=== PATIENT | female | born 1970 | race Caucasian/White ===

== ENCOUNTER 2022-01-02 13:56 | Outpatient (REF) | payer MEDICARE, MEDICAID, SELFPAY ==
[2022-01-02 14:49] LABS: Estimated Average Glucose 97 mg/dL
[2022-01-02 15:25] LABS: Cholesterol 239 mg/dL; HDL Cholesterol 57 mg/dL; LDL Cholesterol Calculated 170 mg/dl; Triglycerides 61 mg/dL
[2022-01-02 15:49] LABS: Free T4 (Free Thyroxine) 1.01 ng/dL (0.71-1.85); Thyroid Stimulating Hormone 0.41 uIU/mL (0.32-4.0)
== END 2022-01-02 13:57 | disposition home or self-care (01) ==
LOC: HO.LAB 13:56
PROVIDERS: Visit Provider Registered Nurse
DX: F31.31 Bipolar disorder, current episode depressed, mild (principal); Z51.81 Encounter for therapeutic drug level monitoring; Z79.899 Other long term (current) drug therapy
CPT/HCPCS: 36415; 80061; 83036; 84439; 84443

== ENCOUNTER 2022-09-14 11:35 | Outpatient (REF) | payer MEDICARE, MEDICAID, SELFPAY ==
[2022-09-14 12:38] LABS: Estimated Average Glucose 97 mg/dL
[2022-09-14 12:46] LABS: Cholesterol 257 mg/dL; HDL Cholesterol 61 mg/dL; LDL Cholesterol Calculated 181 mg/dl; Triglycerides 78 mg/dL
[2022-09-14 13:06] LABS: TSH reflex Free T4 0.81 uIU/mL (0.32-4.0)
== END 2022-09-14 11:36 | disposition home or self-care (01) ==
LOC: HO.LAB 11:35
PROVIDERS: Visit Provider Registered Nurse
DX: Z51.81 Encounter for therapeutic drug level monitoring (principal)
CPT/HCPCS: 36415; 80061; 83036; 84443

== ENCOUNTER 2025-08-21 10:41 | Outpatient (REF) | payer MEDICARE, MEDICAID, SELFPAY ==
[2025-08-21 12:51] LABS: Folate 9.4 ng/mL (> or = 4.0); Vitamin B12 601 pg/mL (200-900)
== END 2025-08-21 10:42 | disposition home or self-care (01) ==
LOC: HO.LAB 10:41
PROVIDERS: Visit Provider Psychiatry & Neurology Neurology
DX: G31.84 Mild cognitive impairment of uncertain or unknown etiology (principal); R25.1 Tremor, unspecified; F41.9 Anxiety disorder, unspecified; F10.90 Alcohol use, unspecified, uncomplicated
CPT/HCPCS: 36415; 82607; 82746; 99212

== ENCOUNTER 2025-08-21 10:41 | Outpatient (AMB) | payer MEDICARE, MEDICAID, SELFPAY ==
--- NOTE | 2025-08-21 10:57 | MHC.OFFVIS ---
Intake Visit Reasons: 1 Year follow up Allergies aspirin Allergy (Unknown, Verified 08/20/25 08:32) Unknown Penicillins Allergy (Unknown, Verified 08/20/25 08:32) Unknown sulfur dioxide Allergy (Unknown, Verified 08/20/25 08:32) Unknown HPI Comments Details: 55 years old woman with anxiety, diagnosis of bipolar disorder, and benign tremor. She was okay except that she was finding herself forgetful. Sometime she was also nervous. Otherwise no new symptom as appeared. [facility] Medical History (Updated 08/21/25 @ 11:02 by Lon Romero MD) H/O alcohol abuse Bipolar disorder Anxiety disorder MCI (mild cognitive impairment) Review of Systems Const Details: Forgetfulness and mild tremor. Physical Exam Neuro Other: Mental Status: Alert and oriented to person, place, and time. Normal attention. Normal spontaneous speech, fluency, and comprehension. Cranial Nerves: CN II: Visual chapman full to confrontation, visual acuity intact. CN III, IV, : Pupils equal, round, reactive to light and accommodation. Extraocular movements are normal. CN V: Facial sensation is normal. CN VII: Facial movements symmetrical. CN VIII: Hearing intact to bedside conversation is normal. CN IX, X: Palate elevates symmetrically. CN XI: Shoulder shrug and head turn symmetrical. CN XII: Tongue midline without atrophy or fasciculations. Extrapyramidal: Full facial expressions and blinking. No rigidity. Mild bilateral hand postural tremor Speech: Normal; no dysarthria or tremor. Assessment & Plan Assessment & Plan (1) Tremor: Code(s): R25.1 - Tremor, unspecified Category: Medical (2) MCI (mild cognitive impairment): Code(s): G31.84 - Mild cognitive impairment of uncertain or unknown etiology Category: Medical Plan Impression: 1. Mild hand tremor with underlying anxiety disorder and previous history of alcohol use 2. Mild cognitive impairment probably multifactorial Recommendations Continue primidone 50 mg a day, which was helping with tremor B12 and folate level Reassurance and education in avoidance of alcohol, which she was not drinking. Orders: Orders Vitamin B12 and Folate Today G31.84 - Mild cognitive impairment of uncertain or unknown etiology Medications: New primidone 50 mg PO BEDTIME 90 tabs 1RF Coding Level of Care Code Est Pt Level 4 (75626) Diagnoses Tremor R25.1 MCI (mild cognitive impairment) G31.84
--- OUTSIDE RECORDS SUMMARY | 2025-08-21 11:59 | XMS_ITS | Encounter Summary ---
Author Organization [employer] Address [address] [place] [address] [address] [place] [address] Care Team Providers Care Harmonica Maker Name Role Phone Unavailable Primary Care Provider Unavailabl e Encounter Details Date Type Department Care Team (Latest Contact Info) Description 12/12/2019 Abstract [facility] Dental, Provider, DDS Social History Tobacco Use Types Packs/Day Years Used Date Smoking Tobacco: Never Assessed Comments Unknown Sex and Gender Information Value Date Recorded Sex Assigned at Female 09/21/2022 10:19 AM EDT Legal Sex Female 10:19 AM EDT Gender Identity Female 09/21/2022 10:19 AM EDT Sexual Orientation Choose not to disclose 2021 10:19 AM EDT documented as of this encounter Plan of Treatment Not on file documented as of this encounter Visit Diagnoses Not on filedocumented in this encounter
--- OUTSIDE RECORDS SUMMARY | 2025-08-21 11:59 | XMS_ITS | Clinical Summary ---
Author Organization [facility] Address [address] [place] [address] Phone Care Team Providers Care Store Detective Name Role Phone Delmis Monahan MD Primary Care Prov ider Allergies Active Allergy Reactions Criticality Noted Date Comments Egg 08/19/2009 Other Reaction(s): Hives/Urticaria Penicillins 01/20/2006 Sulfa (Sulfonamide Antibiotics) 01/20/2006 Medications LORazepam (ATIVAN) 1 mg tablet Take 1 Tablet by mouth 2 times daily as needed. Active ARIPiprazole (ABILIFY) 5 mg tablet Take 1 tablet (5 mg total) by mouth 1 (one) time each day. Active lamoTRIgine (LaMICtal) 200 mg tablet Take 1 tablet (200 mg total) by mouth 2 (two) times a day. 1 Active DAILY MULTI-VITAMIN ORAL Take by mouth. Activ e lactulose (CHRONULAC) solution Take 15 mL (10 g total) by mouth 1 (one) time each day. 900 mL 3 4 Active rosuvastatin (CRESTOR) 20 mg tablet TAKE 1 TABLET BY MOUTH DAILY 90 tablet 1 4 Active primidone (MYSOLINE) 50 mg tablet Take 1 tablet (50 mg total) by mouth 4 (four) times a day. 360 tablet 1 4 Active Additional Information Patient taking differently:50 mg oralDaily, Reported on 04/24/2025 buPROPion XL (WELLBUTRIN XL) 300 mg 24 hr tablet Take 1 tablet (300 mg total) by mouth daily. Active omeprazole (PriLOSEC) [address] capsule Take 1 capsule (20 mg total) by mouth 1 (one) time each day. Do not crush or chew. 90 each 3 5 04/24/20 26 Active Active Problems Problem Noted Date Diagnosed Date Mixed hyperlipidemia 03/15/2023 Assessment & Plan (03/01/2025 8:58 AM EDT): LDL 215 in June/2024, 64 this month. Currently on Rosuvastatin. Encouraged to follow a low fat diet, and start exercising. Will continue same medication. Assessment & Plan (11/03/2024 4:13 PM EST): LDL 215 in June, not taking the prescribed medication. Today we discussed about ASCVD risk, patient understands and agrees to start Rosuvastatin. She will also follow a low fat diet, exercise was encouraged. Orders: Comprehensive metabolic panel; Future Lipid panel with reflex to direct LDL; Future Fatty liver 08/14/2019 Assessment & Plan (03/01/2025 8:58 AM EDT): Healthy lifestyle recommended as above. Recent CMP with normal liver function. Assessment & Plan (11/03/2024 4:13 PM EST): History of a fatty liver. Patient is recommended to follow a low-fat diet, avoid alcohol intake. Will check a CMP before her next visit. Ovarian cyst 12/12/2018 Overview (08/31/2024): 12/12/2018: 3.2 cm left ovarian cyst Subclinical hypothyroidism 10/17/2018 Alcohol abuse, in remission 06/28/2017 Overview (08/31/2024): Stopped drinking entirely, by May 2016 MCI (mild cognitive impairment) 10/02/2016 Overview (08/31/2024): Per neuro notes (Dr. Romero 09/23/16) - prob triggered by ETOH. CT 2011 and 2015 showed bifrontal and cerebellar atrophy. Advised continue counseling and psych meds, check B12 Bipolar 1 disorder ([facility] V24, [facility] V28) Assessment & Plan (03/01/2025 8:58 AM EDT): Follows regularly with psychiatry. Sees her therapist every 2 weeks. Assessment & Plan (11/03/2024 4:13 PM EST): Follows regularly with psychiatry. Sees her therapist every 2 weeks. Allergic rhinitis 04/07/2012 Panic attacks 07/21/2008 Chest pain, unspecified 06/27/2007 Profound impairment, one eye , impairment level not further specified 02/28/2007 Overview (08/31/2024): HISTORY OF RETINAL HEMORRHAGE ON THE RIGHT EYE AND S/P LASER SURGERY Migraine without aura 02/28/2007 Overview (08/31/2024): O update Dermatophytosis of foot 02/05/2007 Depression 01/21/2006 Resolved Problems Problem Noted Date Diagnosed Date Resolved Date Anxiety state 01/21/2006 03/01/2025 Asthma, mild persistent 01/21/200602/20 Immunizations Immunization Administration Dates Next Due Pneumococcal polysaccharide 23 valent (Pneumovax 23) 2yo and older 07/05/2014 TD, Adsorbed, Preservative Free 06/27/2003 Td Tetanus diptheria (Tdvax) 7yo and older 08/24 Tdap Tetanus diptheria acell ular pertussis (Boostrix; Adacel) 7yo and older 07/26/2012 Surgical History Surgery Date Site/Laterality Comments TUBAL LIGATION PROCEDURE: HISTORICAL TUBAL LIGATION CHOLECYSTECTOMY PROCEDURE: IA LAPAROSCOPY SURG CHOLECYSTECTOMY ESOPHAGOGASTRODUODENOSCOPY COLONOSCOPY Medical History Medical History Date Comments Depressive disorder, not els ewhere classified 01/21/2006 DX:Depressive disorder, not elsewhere classified Anxiety state, unspecified 01/21/2006 DX:An xiety state, unspecified Unspecified sinusitis (chronic) 01/21/2006 DX:Unspecified sinusitis (chronic) Other and unspecified alcoho l dependence, unspecified drinking behavior DX:Other and unspecified alc ohol dependence, unspecified drinking behavior; COMMENT: detox 12/03 Profound impairment, one eye , impairment level not further specified 02/28/2007 DX:Profound impairment, one eye, impairment level not further specified; COMMENT: HISTORY OF RETINAL HEMORRHAGE ON THE RIGHT EYE AND S/P LASER SURGERY Migraine without aura, witho ut mention of intractable migraine without mention of status migrainosus 02/28/2007 DX:Migraine with out aura, without mention of intractable migraine without mention of status migrainosus Bipolar 1 disorder ([facility] V24, [facility] V28) DX:Bipolar 1 disorder (HCC) RAD (reactive airway disease) DX :RAD (reactive airway disease) Subclinical hypothyroidism 10/17/2018 DX:Tamayo bclinical hypothyroidism Ovarian cyst 12/12/2018 DX:Ovarian cyst; COMMENT: 12/12/2018: 3.2 cm left ovarian cyst Family history of Brugada syndrome 04/20/2019 DX:Family history of Brugada syndrome Hyperlipidemia Flores esophagus Asthma, mild persistent 01/21/2006 Anxiety state 01/21/2006 Family History Medical History Relation Name Comments Other: brugada type 1 Brother No Known Problems Daughter Hypertension Father anxiety No Known Problems Maternal Grandfather No Known Problems Maternal Grandmother Depression Mother No Known Problems Paternal Grandfather Other: sudden cardiac Paternal Grandmother Breast cancer Neg Hx Colon cancer Neg Hx Ovarian cancer Neg Hx Relation Name Status Comments Brother Alive Daughter Alive Father Alive Maternal Grandfather Maternal Grandmother Mother Paternal Grandfather Paternal Grandmother Social History Tobacco Use Types Packs/Day Years Used Date Smoking Tobacco: Former Cigarettes Q uit: 01/25/2010 Smokeless Tobacco: Never Tobacco Cessation:Counseling Given: Not Answered Alcohol Use Standard Drinks/Week Comments No 0 (1 standard drink = 0.6 oz pur e alcohol) Housing Instability Answer Date Recorde d Are you worried that in the next 2 months you may not have stable housing? No 10/31/2024 Food Access & Nutrition Answer Date Rec orded Do you have access to a vari ety of food including fruits and vegetables? Yes 10/31/2024 Access to Healthcare Answer Date Record ed Within the last 3 months, viktor w many times did you visit the emergency department for your medical care? 0 10/31/2024 Health Literacy Answer Date Recorded How often do you need to hav e someone help you when you read instructions, pamphlets, or other written material from your doctor or pharmacy? Never 10/31/2024 Caregiver: How often do you need to have someone help you when you read instructions, pamphlets, or other written material from your doctor or pharmacy? Not on file 10/31/2024 Financial Risk Answer Date Recorded How hard is it for you to pa y for the very basics like food, housing, medical care, and air conditioning / heating? Hard 10/31/2024 Transportation Answer Date Recorded Has the lack of transportati on kept you from meetings, work, or from getting things needed for daily living? No Has the lack of transportati on kept you from medical appointments or from getting medications? No 10/31/2024 Social Isolation Answer Date Recorded How often do you feel lonely or isolated from th ose around you? Rarely 10/31/2024 Food Risk Answer Date Recorded Within the past 12 months we worried whether our food would run out before we got money to buy more. Never true 10/31/2024 Within the past 12 months th e food we bought just didn't last and we didn't have money to get more. Never true 10/31/2024 Dependent Care Answer Date Recorded Do you need help finding or paying for care for your loved ones. For example, child development professor or elderly care for an older adult? No 10/31/2024 Education Answer Date Recorded Do you think completing more education or training, like finishing a GED, going to college, or learning a trade, would be helpful for you? No 10/31/2024 Employment and Income Answer Date Recor ded During the last four weeks, have you been actively looking for work? No 10/31/2024 Living Situation Answer Date Recorded What is your living situation? Unrecognized valu e 10/31/2024 Interpersonal Safety Answer Date Record ed Physical Abuse Unrecognized value 10/12/2024 Verbal Abuse Unrecognized value 10/12/2024 Comments No Sex and Gender Information Value Date Recorded Sex Assigned at Not on file Legal Sex Female 12:50 AM EST Gender Identity Not on file Sexual Orientation Not on file Obstetrics History Last Filed Vital Signs Vital Sign Reading Time Taken Comments Blood Pressure 100/62 04/24/2025 9:17 AM EDT Pulse 82 03/20/2025 10:28 AM EDT Temperature 36.2 C (97.1 F) 03/20/2025 10:28 AM EDT Respiratory Rate 16 03/20/2025 10:28 AM EDT Oxygen Saturation 98% 03/20/2025 10:28 AM EDT Inhaled Oxygen Concentration - - Weight 73.5 kg (162 lb) 04/24/2025 9:17 AM EDT Height 160 cm (5' 3 ) 04/24/2025 9:17 AM EDT Body Mass Index 28.7 04/24/2025 9:17 AM EDT Plan of Treatment Upcoming Encounters Date Type Department Care Team (Late st Contact Info) Description 08/30/2025 8:30 AM EDT Office Visit Adult Medicine [facility] [address], [place] [phone] Carey Matamoros PA [address] [place], [place] Health Maintenance Due Date Last Done Comments Hepatitis A Vaccines (1 of 2 - Risk 2-dose series) 1988 Hepatitis B Vaccines (1 of 3 - 19+ 3-dose series) 1988 Zoster Vaccines (1 of 2) 2019 HIV Screening 10/31/2022 Depression Screening 11/22/2024 04/25/2024 Medicare Annual Wellness Visit 04/25/2025 04/25/2024 Social Influencers of Health Screening 10/31/2025 10/31/2024 Breast Cancer Screening 04/24/2026 04/24/2024 Cervical Cancer Screening: Pap Smear 08/04/2028 08/04/2023 Colorectal Cancer Screening: Colonoscopy 09/22/2029 09/22/2019 Cholesterol Screening (Lipid Panel) 02/27/2030 02/27/2025, 06/23/2024, 06/23/2024, Additional history exists DTaP,Tdap,and Td Vaccines (3 - Td or Tdap) 08/24/2032 08/24/2022, 07/26/2012, 06/27/2003 Pneumococcal Vaccine: 50+ Years Discontinued 07/05/2014 Hepatitis C Screening Completed 07/27/2019 COVID-19 Vaccine Discontinued HIB Vaccines Aged Out No longer eligi ble based on patient's age to complete this topic HPV Vaccines Aged Out No longer eligi ble based on patient's age to complete this topic IPV Vaccines Aged Out No longer eligi ble based on patient's age to complete this topic Influenza Vaccine Discontinued MMR Vaccines Aged Out No longer eligi ble based on patient's age to complete this topic Meningococcal ACWY Vaccine Aged Out N o longer eligible based on patient's age to complete this topic Meningococcal B Vaccine Aged Out No l onger eligible based on patient's age to complete this topic RSV Immunization Patients Under 20 months Aged Out No longer eligible based on patient's age to complete this topic Varicella Vaccines Aged Out No longer eligible based on patient's age to complete this topic Procedures Procedure Name Priority Date/Time Associated Diagnosis Comments LIPID PANEL WITH REFLEX TO DIRECT LDL Routine 02/27/2025 10:17 AM EDT Mixed hyperlipidemia DEPRESSION SCREENING Routine 04/25/2024 PAP SMEAR Routine 08/04/2023 COLONOSCOPY Routine 09/22/2019 HEPATITIS C SCREENING Routine 07/27/2019 from Last 3 Months or Most Recently Relevant to Health Maintenance Results * Lipid panel with reflex to direct LDL (02/27/2025 10:17 AM EDT) Cholesterol 140 0 - 200 mg/dL LAB CHEMISTRY METHOD 02/27/2025 1:30 PM EDT [facility] Triglycerides 49 0 - 150 mg/dL LAB CHEMISTRY METHOD 02/27/2025 1:30 PM EDT [facility] HDL 66 >=40 mg/dL LAB CHEMISTRY METHOD 02/27/2025 1:30 PM EDT [facility] LDL Calculated 64 0 - 100 mg/dL LAB CHEMISTRY METHOD 02/27/2025 1:30 PM EDT [facility] VLDL Cholesterol Jef 9.8 mg/dL LAB CHEMISTRY METHOD 02/27/2025 1:30 PM EDT [facility] Non HDL Chol. (LDL+VLDL) 74 <145 mg/dL LAB CHEMISTRY METHOD 02/27/2025 1:30 PM EDT [facility] Chol/HDL Ratio 2.1 0.0 - 4.4 LAB CHEMISTRY METHOD 02/27/2025 1:30 PM EDT [facility] Blood Venous blood specimen / Unknown Venipuncture / Unknown 02/27/2025 10:17 AM EDT 02/27/2025 10:17 AM EDT Delmis Monahan MD LAB BLOOD ORDERABL ES Final Result [facility] [address] [place] [address], * Depression Screening (04/25/2024) [facility] Depression Screening abstracted [facility] Provider HEALTH MAINTENANCE Final Result * Pap Smear (08/04/2023) [facility] Pap smear negative, abstracted [facility] Provider HEALTH MAINTENANCE Final Result * Colonoscopy (09/22/2019) [facility] Colonoscopy no interpretation , abstracted Anatomical Region Laterality Modality Other [facility] Provider HEALTH MAINTENANCE Final Result * Hepatitis C Screening (07/27/2019) [facility] Hepatitis C Screening abstracted [facility] Provider HEALTH MAINTENANCE Final Result from Last 3 Months or Most Recently Relevant to Health Maintenance Insurance MEDICARE MEDICAID - [place] Care Teams Store Detective Relationship Specialty Start Date End Date Delmis Monahan MD [address] [place] [phone] PCP - General Internal Medicine 10/09/24
--- OUTSIDE RECORDS SUMMARY | 2025-08-21 11:59 | XMS_ITS | Clinical Summary ---
Author Organization [employer] Address [address] [place] [address] [address] [place] [address] Care Team Providers Care Cleat Feeder Name Role Phone Unavailable Primary Care Provider Unavailabl e Allergies Active Allergy Reactions Criticality Noted Date Comments Penicillins Rash Low 11/25/2022 Sulfadiazine Rash Low 11/25/2022 Medications LORazepam 1 MG/0.5ML concentration Take 1 tablet by mouth every 8 (eight) hours. 6 Active chlorhexidine (Peridex) 0.12 % solution Place 15 mL into mouth between cheek and gum every 12 (twelve) hours. 1 Active clindamycin (Cleocin) 300 MG capsule 1 T po q8h until gone 6 Active Folic Acid 0.8 MG capsule Active lamoTRIgine (LaMICtal) 100 MG tablet Take 1 tablet by mouth at bed time. Active levothyroxine (Synthroid, Levoxyl) 25 MCG tablet Take 1 tablet by mouth at bed time. Active lurasidone (Latuda) 60 MG tablet Take 1 tablet by mouth at bed time. Active propranolol (Inderal) 20 MG tablet Take 1 tablet by mouth every 8 (eight) hours. Active primidone (Mysoline) 50 MG tablet Take 50 mg by mouth. Active buPROPion XL (Wellbutrin XL) 300 MG 24 hr tablet Take 300 mg by mouth Once per day. Do not crush, chew, or split. Active ARIPiprazole (Abilify) 10 MG tablet Take 10 mg by mouth Once per day. Active Social History Tobacco Use Types Packs/Day Years Used Date Smoking Tobacco: Never Passive Smoke Exposure: Never Smokeless Tobacco: Never Tobacco Cessation:Counseling Given: Not Answered Alcohol Use Standard Drinks/Week Comments Not Currently 0 (1 standard drink = 0.6 oz pur e alcohol) Comments Unknown Sex and Gender Information Value Date Recorded Sex Assigned at Female 09/21/2022 10:19 AM EDT Legal Sex Female 10:19 AM EDT Gender Identity Female 09/21/2022 10:19 AM EDT Sexual Orientation Choose not to disclose 2021 10:19 AM EDT Last Filed Vital Signs Vital Sign Reading Time Taken Comments Blood Pressure 106/66 09/06/2024 8:56 AM EDT Pulse 70 09/06/2024 8:56 AM EDT Temperature - - Respiratory Rate - - Oxygen Saturation - - Inhaled Oxygen Concentration - - Weight - - Height - - Body Mass Index - - Plan of Treatment Health Maintenance Due Date Last Done Comments CT Colonography 1969 Colonoscopy 1969 Colorectal Cancer Screening 1969 Depression Screening 1969 FIT DNA/Cologuard 1969 FIT 1969 FOBT 1969 HIV Screening 1969 SDOH Screening 1969 Sigmoidoscopy 1969 Disability Screening 1969 Alcohol/Substance Use Screening 1981 Hepatitis C Screening 1987 Hepatitis B Vaccines (1 of 3 - 19+ 3-dose series) 1988 Pap Smear 1990 Cervical Cancer Screening 1999 HPV/Cotest 1999 Mammogram 2009 Pneumococcal Vaccine: 50+ Years (2 of 2 - PCV) 07/05/2015 07/05/2014 Zoster Vaccines (1 of 2) 2019 Dental Oral Exam 03/08/2025 09/06/2024, 11/25/2022 Dental Prophylaxis 03/08/2025 09/06/2024, 11/25/2022 COVID-19 Vaccine (1 - 2023-2 5 season) 2025 Influenza Vaccine (#1) 2025 Tobacco Screening 09/06/2025 09/06/2024 Dental X-Ray: Bitewings 09/07/2025 09/06/20 24, 11/25/2022 Dental X-Ray: Full Mouth 09/07/2027 09/06/2024 DTaP/Tdap/Td Vaccines (3 - T d or Tdap) 08/24/2032 08/24/2022, 07/26/2012, 06/27/2003 RSV Patients and Patients Aged 60 years or older (1 - 1-dose 75+ series) 2044 HIB Vaccines Aged Out No longer eligi ble based on patient's age to complete this topic HPV Vaccines Aged Out No longer eligi ble based on patient's age to complete this topic Hepatitis A Vaccines Aged Out No long er eligible based on patient's age to complete this topic IPV Vaccines Aged Out No longer eligi ble based on patient's age to complete this topic Meningococcal B Vaccine Aged Out No l onger eligible based on patient's age to complete this topic Meningococcal Vaccine Aged Out No jeevan antonio eligible based on patient's age to complete this topic RSV under 20 months Aged Out No longe r eligible based on patient's age to complete this topic Rotavirus Vaccines Aged Out No longer eligible based on patient's age to complete this topic Procedures Procedure Name Priority Date/Time Associated Diagnosis Comments PROPHYLAXIS - ADULT Routine 09/06/2024 8 :00 AM EDT INTRAORAL - COMPLETE SERIES OF RADIOGRAPHIC IMAGES Routine 09/06/2024 8:00 AM EDT PERIODIC ORAL EVALUATION - ESTABLISHED PATIENT Routine 09/06/2024 8:00 AM EDT from Last 3 Months or Most Recently Relevant to Health Maintenance Insurance [facility] MEDICAID STAND ADULT
--- OUTSIDE RECORDS SUMMARY | 2025-08-21 11:59 | XMS_ITS | Encounter Summary ---
Author Organization [employer] Address [address] [facility] [address] [place] [address] Care Team Providers Care Offbearer Name Role Phone Unavailable Primary Care Provider Unavailabl e Encounter Details Date Type Department Care Team (Latest Contact Info) Description 12/06/2020 Abstract [facility] Dental, Provider, DDS Social History Tobacco [...]
== END 2025-08-21 11:04 | disposition home or self-care (01) ==
LOC: HO.HSM 10:42
PROVIDERS: Visit Provider Psychiatry & Neurology Neurology
DX: R25.1 Tremor, unspecified (principal); G31.84 Mild cognitive impairment of uncertain or unknown etiology
CPT/HCPCS: 99214